=== PATIENT | female | born 1960 | race Caucasian/White ===

== ENCOUNTER 2018-04-13 15:47 | Emergency (ER) | payer SELFPAY ==
[~2018-04-13] VITALS: Ht 160 cm; Wt 72.6 kg
--- NOTE | 2018-04-13 16:00 | NUR ---
BBRA FROM HOME: GLF, RIGHT KNEE PAIN. SEEN BY PA FOR EVAL. DENIES KO, DENIES ANY OTHER PAIN/INJURY. VSS. SAFETY AND COMFORT MEASURES PROVIDED. WILL MONITOR.
[2018-04-13] MEDS ORDERED: IBUPROFEN SUSP 100 MG/5 ML UDC ONE (16:22)
[2018-04-13] MEDS: IBUPROFEN SUSP 100 MG/5 ML UDC PO ONE (16:28)
--- NOTE | 2018-04-13 16:28 | NUR ---
GURINDER AT BS.
[2018-04-13] MEDS ORDERED: LORAZEPAM 1 MG TABLET ONE (17:58)
[2018-04-13] MEDS: LORAZEPAM 1 MG TABLET PO ONE (18:04)
--- NOTE | 2018-04-13 18:05 | NUR ---
KALPESH LO AT FOR SPLINTS.
[2018-04-13 18:58] VITALS: BP 128/84
== END 2018-04-13 18:59 | disposition home or self-care (01) ==
LOC: ER 15:51
DX: S82.191A Other fracture of upper end of right tibia, initial encounter for closed fracture (principal); Z98.890 Other specified postprocedural states; Z60.2 Problems related to living alone; W18.39XA Other fall on same level, initial encounter; Y93.89 Activity, other specified; Y92.89 Other specified places as the place of occurrence of the external cause; Y99.8 Other external cause status
CPT/HCPCS: 73564-TC; 73590-TC; A4606; Z7610